=== PATIENT | female | born 1960 | race African-American/Black ===

== ENCOUNTER 2018-05-03 19:44 | Emergency (ER) | payer MEDICARE, MEDICAID ==
[~2018-05-03] VITALS: Ht 170.2 cm; Wt 87.0 kg
[2018-05-03 20:13] VITALS: BP 147/67
== END 2018-05-03 23:30 | disposition home or self-care (01) ==
LOC: ER 21:14
DX: R04.0 Epistaxis (principal); R51 Headache; J33.9 Nasal polyp, unspecified; R03.0 Elevated blood-pressure reading, without diagnosis of hypertension
CPT/HCPCS: 99283